=== PATIENT | female | born 1955 | race Hispanic/Latino ===

== ENCOUNTER 2018-05-05 10:49 | Outpatient (CLI) | payer BC ==
--- NOTE | 2018-05-05 11:56 | MRI ---
MRI LUMBAR SPINE NONCONTRAST: History: Low back pain. Neurogenic claudication. FINDINGS: Conus medullaris has a normal appearance. There is desiccation of all of the intervertebral discs. Th ere is disc space narrowing and mild posterior disc bulge at the T11-12 level of the lower thoracic s pine. T12-L1, L1-2: Mild osteophytosis. The central canal and neural foramina are patent. L2-3: Mild disc space narrowing. Posterior disc bulge. Minimal central canal stenosis. Degenerative c hanges result in moderate and mild left foraminal stenoses. L3-4: Disc space narrowing. Minimal degenerative retrolisthesis. Posterior disc bulge with circumfere ntial degenerative changes resulting in mild stenosis of the central canal. Moderate stenosis of each neural foramen. L4-5: Disc space narrowing and minimal degenerative retrolisthesis. Discogenic endplate changes withi n the bone marrow are most pronounced at this level. Posterior disc bulge and circumferential degener ative changes with mild stenosis of the central canal and moderate stenosis of each neural foramen. L5-S1: Minimal degenerative retrolisthesis. Posterior disc bulge. Thecal sac is patent. Moderate righ t and mild left foraminal stenosis. IMPRESSION: 1. Multilevel degenerative changes with foraminal stenoses as detailed above. No significant central canal stenosis is evident. POS: FELISA
--- NOTE | 2018-05-05 12:55 | RAD ---
LUMBAR SPINE FOUR VIEWS: History: Low back pain. FINDINGS: There are five lumbar type vertebrae. Rightward convex rotatory scoliotic curvature on the frontal vi ew. Pedicles are intact. Vertebral body heights are maintained. Minimal degenerative retrolisthesis a t the L3-4 level without abnormal translational motion upon flexion or extension. Disc space narrowin g at the L4-5 level with endplate changes most pronounced at the lowest two levels. IMPRESSION: Lower lumbar spondylosis. No acute osseous abnormalities are demonstrated. POS: FELISA
== END 2018-05-05 10:50 | disposition home or self-care (01) ==
LOC: TBSIIMAG 10:49
PROVIDERS: ATTEND Surgery
DX: M48.062 Spinal stenosis, lumbar region with neurogenic claudication (principal); M54.5 Low back pain; M47.896 Other spondylosis, lumbar region; M99.83 Other biomechanical lesions of lumbar region
CPT/HCPCS: 72110; 72148

== ENCOUNTER 2019-04-08 10:49 | Outpatient (CLI) | payer BC ==
--- NOTE | 2019-04-08 11:43 | BD ---
BONE DENSITOMETRY: Date: 04/08/19 INDICATION: Postmenopausal osteoporosis screening. FINDINGS: Lumbar Spine: BMD (g/cm2) L1 0.732 T-Score: -2.3 L2 0.81 T-Score: -2.0 L3 0.813 T-Score: -2.5 L4 1.034 T-Score: -0.2 Total 0.854 T-Score: -1.8 Left Femoral Neck: 0.548 T-Score: -2.7 Total Femur: 0.805 T-Score: -1.1 IMPRESSION: 1. Bone mineral density of the femoral neck indicates osteoporosis. 2. Bone mineral density of the lumbar spine indicates osteopenia. POS: SONYA
== END 2019-04-08 10:50 | disposition home or self-care (01) ==
LOC: BICMAMMO 10:49
PROVIDERS: ATTEND Student in an Organized Health Care Education/Training Program
DX: Z13.820 Encounter for screening for osteoporosis (principal); M81.0 Age-related osteoporosis without current pathological fracture; M85.88 Other specified disorders of bone density and structure, other site
CPT/HCPCS: 77080

== ENCOUNTER 2019-11-09 09:59 | Outpatient (CLI) | payer BC ==
--- NOTE | 2019-11-09 12:12 | CT ---
EXAM: CT Abdomen Pelvis W WO con PROVIDED CLINICAL HISTORY: Microhematuria. COMPARISON: None FINDINGS: Lung bases are clear. The liver, spleen, pancreas, bilateral adrenal glands, and kidneys demonstrate a normal CT appearance . No renal or ureteral calculi are seen bilaterally, and there is no evidence of hydronephrosis. No enh ancing renal mass is identified. The urinary bladder is incompletely distended but otherwise has a normal CT appearance. Delayed imaging demonstrates no definitive filling defect within the renal iona ecting systems or most proximal opacified ureters. Majority of the ureters are not opacified on delayed imaging. Vascular calcifications and mild atherosclerotic plaque is seen in the abdominal aorta and involving the iliac arteries. No free fluid, fluid collection, or lymphadenopathy is seen in the abdomen or pelvis. The appendix is visualized and normal in caliber. Colonic diverticulosis is visualized with small babak unt of retained fecal material seen throughout the colon. Loops of small bowel are normal in caliber. Uterus is not visualized and likely surgically absent. Few surgical clips are seen in the anterior as pect right lower pelvis in the subcutaneous soft tissues. Degenerative changes are seen in the lumbar spine. IMPRESSION: 1. No acute findings are seen in the abdomen or pelvis. 2. No renal or ureteral calculi are seen bilaterally, and there is no evidence of an enhancing renal mass.
== END 2019-11-09 10:00 | disposition home or self-care (01) ==
LOC: SCSCT 09:59
PROVIDERS: ATTEND Urology
DX: R31.29 Other microscopic hematuria (principal)
CPT/HCPCS: 74178; 82565